=== PATIENT | female | born 1965 | race Caucasian/White ===

== ENCOUNTER 2021-07-14 16:00 | Emergency (ER) | payer OTHER, SELFPAY ==
[2021-07-14 16:15] VITALS: BP 157/78; PULSE 78; RESP 20; TEMP 37.3; O2SAT 94
--- NOTE | 2021-07-14 17:09 | ED.URI ---
HPI - URI/Sore Throat General Chief Complaint: Upper Respiratory Infection Stated Complaint: Sinus Pain/Cough Time Seen by Provider: 07/14/21 17:09 Source: patient, RN notes reviewed and old records reviewed Mode of arrival: ambulatory Limitations: no limitations History of Present Illness HPI Narrative: 56 year old female who presents to [facility] care with complaints of 7 day history of cough, nasal congestion, some wheezing with some exertional dyspnea.Patient reports long history of tobacco use and is cutting back to quit smoking down to 8/day. Patient states initially was sinus congestion and nasal drainage which has moved into her chest, admits to harsh cough, wheezing and some exertional shortness of breath.Patient reports that she gets this usually yearly and is bronchitis.Patient reports no sore throat, denies any fevers, chills or sweats or any body aches. MD elicited complaint: cough, rhinorrhea, nasal congestion and sinus pain Related Data Allergies Allergy/AdvReac Type Severity Reaction Status Date / Time No Known Allergies Allergy Verified 07/14/21 16:15 Review of Systems Review of Systems: CONSTITUTIONAL: Denies fever, chills, or sweats. EYES: Denies visual changes, redness, or discharge. ENT: Positive for rhinorrhea, congestion,no sore throat, or otalgia. CARDIOVASCULAR: Denies chest pain, palpitations, or edema. RESPIRATORY: Positive for cough and exertional dyspnea. GASTROINTESTINAL: Denies abdominal pain, nausea, vomiting, or diarrhea. GENITOURINARY: Denies dysuria or hematuria. SKIN: Denies rash or itching. MUSCULOSKELETAL: Denies back pain, joint pain, or myalgia. NEUROLOGIC: Denies headache, numbness, or weakness. PSYCHIATRIC: Denies anxiety or depression. All systems reviewed & are unremarkable except as noted in HPI and below [facility] Past Medical History Medical History (Updated 07/15/21 @ 00:00 by Lilia Lee) Tobacco abuse Surgical History Surgical History (Updated 07/15/21 @ 09:35 by Suzanna Hughes NP) H/O: hysterectomy Hx of cholecystectomy Social History Social History (Updated 07/15/21 @ 09:40 by Suzanna Hughes NP) Smoking packs per day: 1 Smoking cigarettes per day: 20.0 Years smoked: 40 Smoking pack-years: 40.00 Smoking status: Current every day smoker Tobacco type: cigarettes Alcohol intake: current Alcohol use details: social Substance use type: does not use Living arrangements: with family Gender identity (if verbalized by the patient): Female Comments At time of signature, agree with nursing past medical, surgical, social and family history. There is no relevant family history pertinent to the presenting complaint Exam Narrative: GENERAL: Ill-appearing, well-nourished,obese and in no acute distress. HEAD: Normocephalic, atraumatic. EYES: PERRLA and EOMI. ENT: Nares red membranes with clear rhinorrhea no epistaxis. Mucous membranes moist.TM's noted with good light reflex, throat red with no lesions or exudates no tonsil swelling post nasal drainage present NECK: Supple.no lymphadenopathy CHEST: Scattered wheezing on auscultation. No respiratory distress.SAO2 94% on room air, cough present and harsh HEART: Regular rate and rhythm. No murmur heard. Normal peripheral pulses. ABDOMEN: Soft, nontender, nondistended, normal active bowel sounds. EXTREMITIES: Normal range of motion. No edema. SKIN: Warm, dry, no rash. NEURO: No focal deficits. Alert and oriented x3. Course Course Level of Care: Express Care Visit Vital Signs Vital signs: Vital Signs Temperature 37.3 C 07/14/21 16:15 Pulse Rate 78 07/14/21 16:15 Respiratory Rate 20 07/14/21 16:15 Blood Pressure 157/78 H 07/14/21 16:15 Pulse Oximetry 94 07/14/21 16:15 Temperature 37.3 C 07/14/21 16:15 Pulse Rate 78 07/14/21 16:15 Respiratory Rate 20 07/14/21 16:15 Blood Pressure 157/78 H 07/14/21 16:15 Pulse Oximetry 94 07/14/21 16:15 MDM - URI/Sore Th
== END 2021-07-14 17:42 | disposition home or self-care (01) ==
PROVIDERS: Emergency Provider Registered Nurse
DX: J40 Bronchitis, not specified as acute or chronic (principal); F17.210 Nicotine dependence, cigarettes, uncomplicated
CPT/HCPCS: 99213; G0463